=== PATIENT | female | born 1980 | race American Indian/Alaskan Native ===

== ENCOUNTER 2022-06-04 09:24 | Emergency (ER) | payer SELFPAY ==
[2022-06-04 09:59] VITALS: BP 123/68
[2022-06-04 10:32] LABS: Basophils % (Auto) 0.5 % (0.0-1.8); Eosinophils # (Auto) 0.1 K/mm3 (0.0-0.4); Eosinophils % (Auto) 0.6 % (0.0-4.3); Hematocrit 37.9 % (30.3-42.9); Hemoglobin 12.1 gm/dl (10.1-14.3); Lymphocytes # (Auto) 2.6 K/mm3 (1.2-5.4); Lymphocytes % (Auto) 28.3 % (13.4-35.0); Mean Corpuscular HGB Conc 32 % (30-34); Mean Corpuscular Volume 78 fl (79-97); Monocytes # (Auto) 0.6 K/mm3 (0.0-0.8); Monocytes % (Auto) 7.1 % (0.0-7.3); Platelet Count 434 K/mm3 (140-440); Red Blood Count 4.84 M/mm3 (3.65-5.03); Red Cell Distribution Width 14.9 % (13.2-15.2)
[2022-06-04 10:54] LABS: Alanine Aminotransferase 15 units/L (7-56); Albumin 4.2 g/dL (3.9-5); BUN/Creatinine Ratio 14; Blood Urea Nitrogen 11 mg/dL (7-17); Calcium 9.7 mg/dL (8.4-10.2); Hemolysis Index 0
[2022-06-04] MEDS ORDERED: cloNIDine 0.1 MG TAB PO ONE (12:54)
[2022-06-04] MEDS ORDERED: LOPERAMIDE 2 MG CAP PO ONE (12:54)
[2022-06-04] MEDS ORDERED: ONDANSETRON 4 MG ODT TAB PO ONE (12:54)
--- NOTE | 2022-06-04 13:01 | Emergency Department Report ---
ED General Adult HPI - General Chief complaint: Medical Clearance Stated complaint: WITHDRAWALS Time Seen by Provider: 06/04/22 12:48 Source: patient Mode of arrival: Ambulatory Limitations: No Limitations - History of Present Illness Initial comments: 41-year-old female presents to the hospital complaining of Suboxone withdrawal. Patient is [facility] attending to her son who was recently involved in a motor vehicle accident. She typically takes Suboxone 3 times daily and receives a refill via her doctor every 2 weeks. Patient missed refill appointment because she was here in [place] and has not had her medication at least 3 to 4 days. Now complains of nausea (without vomiting), decreased appetite, chills, diarrhea, and irritability. Severity scale (0 -10): 9 - Related Data Previous Rx's Medication Instructions Recorded Last Taken Type Loperamide HCl [Imodium A-D] 2 mg PO Q2HR PRN #20 cap 06/04/22 Unknown Rx Ondansetron [Zofran Odt] 4 mg PO Q8HR PRN #20 tab.rapdis 06/04/22 Unknown Rx cloNIDine [Catapres] 0.1 mg PO BID #10 tablet 06/04/22 Unknown Rx hydrOXYzine PAMOATE [Vistaril] 50 mg PO Q6HR PRN #20 capsule 06/04/22 Unknown Rx traZODone [Desyrel] 50 mg PO QHS PRN #7 tab 06/04/22 Unknown Rx Allergies Allergy/AdvReac Type Severity Reaction Status Date / Time No Known Allergies Allergy Unverified 06/04/22 09:59 ED Review of Systems ROS: Stated complaint: WITHDRAWALS Other details as noted in HPI Comment: All other systems reviewed and negative ED Past Medical Hx - Past Medical History Previous Medical History?: No - Surgical History Past Surgical History?: No - Medications Home Medications: Home Medications Medication Instructions Recorded Confirmed Last Taken Type Loperamide HCl [Imodium A-D] 2 mg PO Q2HR PRN #20 cap 06/04/22 Unknown Rx Ondansetron [Zofran Odt] 4 mg PO Q8HR PRN #20 tab.rapdis 06/04/22 Unknown Rx cloNIDine [Catapres] 0.1 mg PO BID #10 tablet 06/04/22 Unknown Rx hydrOXYzine PAMOATE [Vistaril] 50 mg PO Q6HR PRN #20 capsule 06/04/22 Unknown Rx traZODone [Desyrel] 50 mg PO QHS PRN #7 tab 06/04/22 Unknown Rx ED Physical Exam - General Limitations: No Limitations - Other Other exam information: General: No acute distress Head: Atraumatic Eyes: normal appearance ENT: Moist mucous membranes Neck: Normal appearance, no midline tenderness Chest: Clear to auscultation bilaterally CV: Regular rate and rhythm Abdomen: Soft, normal bowel sounds, nontender, nondistended, no rebound or guarding Back: Normal inspection Extremity: Normal inspection, full range of motion Neuro: Alert O x 3, no facial asymmetry, speech clear, no gross motor sensory deficit Psych: Agitated Skin: No rash ED Course Vital Signs 06/04/22 09:53 Temperature 98.7 F Pulse Rate 93 H Respiratory 18 Rate Blood Pressure 123/68 [Left] O2 Sat by Pulse 98 Oximetry ED Medical Decision Making - Lab Data Result diagrams: 06/04/22 10:20 06/04/22 10:20 Lab Results 06/04/22 06/04/22 Range/Units 10:20 10:20 WBC 9.2 (4.5-11.0) K/mm3 RBC 4.84 (3.65-5.03) M/mm3 Hgb 12.1 (10.1-14.3) gm/dl Hct 37.9 (30.3-42.9) % MCV 78 L (79-97) fl MCH 25 L (28-32) pg MCHC 32 (30-34) % RDW 14.9 (13.2-15.2) % Plt Count 434 (140-440) K/mm3 Lymph % (Auto) 28.3 (13.4-35.0) % Gibson % (Auto) 7.1 (0.0-7.3) % Eos % (Auto) 0.6 (0.0-4.3) % Baso % (Auto) 0.5 (0.0-1.8) % Lymph # (Auto) 2.6 (1.2-5.4) K/mm3 Gibson # (Auto) 0.6 (0.0-0.8) K/mm3 Eos # (Auto) 0.1 (0.0-0.4) K/mm3 Baso # (Auto) 0.0 (0.0-0.1) K/mm3 Seg Neutrophils % 63.5 (40.0-70.0) % Seg Neutrophils # 5.9 (1.8-7.7) K/mm3 Sodium 139 (137-145) mmol/L Potassium 4.0 (3.6-5.0) mmol/L Chloride 102.1 (98-107) mmol/L Carbon Dioxide 29 (22-30) mmol/L Anion Gap 12 mmol/L BUN 11 (7-17) mg/dL Creatinine 0.8 (0.6-1.2) mg/dL Estimated GFR > 60 ml/min BUN/Creatinine Ratio 14 % Glucose 105 H (65-100) mg/dL Calcium 9.7 (8.4-10.2) mg/dL Total Bilirubin 0.70 (0.1-1.2) mg/dL AST 13 (5-40) units/L ALT 15 (7-56) units/L Alkaline Phosphatase 65 (35-129) units/L Total Protein 7.0 (6.3-8.2) g/dL Albumin 4.2 (3.9-5) g/dL Albumin/Globulin Ratio 1.5 % - Medical Decision Making 41-year-old female presents to the hospital requesting refill on her Suboxone. Patient is from out of town. Explained I am unable to prescribe Suboxone to her at this time but cannot provide medications for withdrawal symptoms. She is encouraged to follow-up with her doctor for refill. She was treated with clonidine, Imodium, and Zofran in the ED. Patient does not have clinical signs of dehydration and denies vomiting. Labs are unremarkable Patient eloped when she was informed she would not be getting Suboxone presc ription here. She did not receive medications in the ED nor did she receive her prescriptions or discharge papers Critical Care Time: No Critical care attestation.: If time is entered above; I have spent that time in minutes in the direct care of this critically ill patient, excluding procedure time. ED Disposition Clinical Impression: Opiate withdrawal Disposition: 07 LEFT AWOL/ELOPED Is pt being admited?: No Does the pt Need Aspirin: No Condition: Stable Instructions: Opioid Withdrawal Treatment Additional Instructions: Take the medication as prescribed. Follow-up with your doctor at your Suboxone clinic for refill in your medication. Return if symptoms worsen as indicated by your discharge instructions. Professional and Agency Contacts To help Resolve Crises (01/05) [place] Crisis Line: Suicide Prevention Line: Crisis Text Line: Text ``START to 687632 Emergency: 911 SUBSTANCE ABUSE PROGRAMS: So[facility] Living [facility]: Location: [place], [place] [facility]! Address: [address] [place] [address] [facility] Recovery: Address: [address] [place] [address] [facility]: Address: [address] [place] [address] [facility] Community: Address: [address] [place] [address] Prescriptions: cloNIDine [Catapres] 0.1 mg PO BID #10 tablet traZODone [Desyrel] 50 mg PO QHS PRN #7 tab PRN Reason: Insomnia Loperamide HCl [Imodium A-D] 2 mg PO Q2HR PRN #20 cap PRN Reason: Diarrhea hydrOXYzine PAMOATE [Vistaril] 50 mg PO Q6HR PRN #20 capsule PRN Reason: Anxiety Ondansetron [Zofran Odt] 4 mg PO Q8HR PRN #20 tab.rapdis PRN Reason: Nausea And Vomiting Referrals: [facility] [Provider Group] - 3-5 Days Time of Disposition: 13:27 (Patient eloped)
== END 2022-06-05 09:46 | disposition left against medical advice (07) ==
LOC: ED 09:24
DX: F11.23 Opioid dependence with withdrawal (principal)
CPT/HCPCS: 36415; 80053; 85025; 99282